=== PATIENT | female | born 1935 | race African-American/Black ===

== ENCOUNTER 2016-12-04 18:31 | Emergency (ER) | payer MEDICARE, MEDICAID ==
[~2016-12-04] VITALS: Ht 154.9 cm; Wt 59.1 kg
[~2016-12-04 18:31] MED LIST: ADALAT CC30 MG; ARICEPT 5MG; DILANTIN 100MG100 MG PO; DUO-KAPS1 CAP PO; MICRO-K 1010 MEQ PO; NEW ENERGY1 CAP PO; OMEGA 31000 MG PO; PLAVIX 75MG TAB75 MG PO; PRINZIDE 12.5 M1 TAB PO; SENNA8.6 MG PO; TEGRETOL 2200 MG/TA1 PO; TENORMIN 5050 MG/TAB PO; VITAMIN C500 MG PO; ZOCOR 20MG20 MG PO
[2016-12-04 18:36] VITALS: TEMP 98.2
[2016-12-04 19:50] LABS: CARBAMAZEPINE (TEGRETOL) 4.7 ug/mL (4.0-12.0)
[2016-12-04 20:17] VITALS: BP 148/84; PULSE 76
== END 2016-12-04 20:18 | disposition home or self-care (01) ==
LOC: COL.ER 18:31
PROVIDERS: Emergency Medicine
DX: J06.9 Acute upper respiratory infection, unspecified (principal); R56.9 Unspecified convulsions

== ENCOUNTER → 2016-12-13 | Outpatient (CLI) | payer MEDICARE, MEDICAID ==
[~2016-12-13] MED LIST changes: +ANTIVERT 12.512.5 MG PO; +ARICEPT 5MG PO; +B-12 500 MCG; +BENADRYL25 M2 PO; +DESYREL 50MG50 MG PO; +DILANTIN KAPSEA30 MG PO; +FOLIC ACID0.4 MG PO; +IMODIUM 2MG CAPS2 MG PO; +MIRALAX PA17 GM/Dose PO; +NORCO 325 MG-51 TAB PO; +PAXIL 30MG30 MG PO; +PEPCID 20MG TAB20 MG PO; +PREPH RC; +TYLENOL 325MG325 MG PO; +ULTRAM 50MG TAB50 MG PO; +VENTOLIN0.09 MG IH
[2016-12-13 13:05] LABS: BASO % 0.4 % (0.0-2.0); EOS % 0.4 % (0-4.0); GRAN # 2.9 (1.4-6.5); GRAN % 52.8 % (42.2-75.2); LYMPH # 1.9 (1.2-3.4); LYMPH % 35.2 % (20.0-51.0); MEAN CELL VOLUME 83 fl (80.0-100.0); MEAN CORPUSCULAR HGB CONC 34 g/dl (33.0-37.0); MEAN PLATELET VOLUME 9.6 fl (7.4-10.4); MONO # 0.6 (0.1-0.6); PLATELET COUNT 214 K/mm3 (130-400); RED BLOOD COUNT 3.92 M/mm3 (4.10-5.30); REDCELL DISTRIBUTION WIDTH-CV 12.1 % (11.5-14.5); WHITE BLOOD COUNT 5.5 K/mm3 (4.8-10.8)
[2016-12-13 13:06] LABS: CREATININE, serum 1.02 mg/dL (0.52-1.25); POTASSIUM 4.5 mmol/L (3.4-5.0)
[2016-12-13 13:15] LABS: HEMATOCRIT 32.5 % (37.0-47.0); HEMOGLOBIN 11.1 g/dl (12.5-16.0); MEAN CORPUSCULAR HEMOGLOBIN 28 pg (27.0-31.0)
== END ==
LOC: ZCOL.LAB 12:13
PROVIDERS: Internal Medicine
DX: I10 Essential (primary) hypertension (principal); Z02.89 Encounter for other administrative examinations

== ENCOUNTER 2016-12-16 23:50 | Emergency (ER) | payer MEDICARE, MEDICAID ==
[~2016-12-16] VITALS: Ht 154.9 cm; Wt 60.0 kg
[~2016-12-16 23:50] MED LIST changes: -ANTIVERT 12.512.5 MG PO; -ARICEPT 5MG PO; -B-12 500 MCG; -BENADRYL25 M2 PO; -DESYREL 50MG50 MG PO; -DILANTIN KAPSEA30 MG PO; -FOLIC ACID0.4 MG PO; -IMODIUM 2MG CAPS2 MG PO; -MIRALAX PA17 GM/Dose PO; -NORCO 325 MG-51 TAB PO; -PAXIL 30MG30 MG PO; -PEPCID 20MG TAB20 MG PO; -PREPH RC; -TYLENOL 325MG325 MG PO; -ULTRAM 50MG TAB50 MG PO; -VENTOLIN0.09 MG IH
[2016-12-16 23:51] VITALS: TEMP 97.4
[2016-12-17 01:03] LABS: PH 7 (5-8); SQUAMOUS EPITHELIAL None Seen /hpf; URINE APPEARANCE Clear; URINE BACTERIA Rare /hpf; URINE BILIRUBIN Negative (NEGATIVE); URINE BLOOD Negative (NEGATIVE); URINE COLOR Straw; URINE GLUCOSE Negative (NEGATIVE); URINE KETONE Negative (NEGATIVE); URINE RBC 0-2 /hpf; URINE UROBILINOGEN Negative (NEGATIVE); URINE WBC 0-2 /hpf
[2016-12-17 01:46] LABS: BASO % 0.3 % (0.0-2.0); EOS % 0.3 % (0-4.0); GRAN # 4.9 (1.4-6.5); GRAN % 72.8 % (42.2-75.2); HEMATOCRIT 35.1 % (37.0-47.0); HEMOGLOBIN 12.1 g/dl (12.5-16.0); LYMPH # 1.2 (1.2-3.4); LYMPH % 17.7 % (20.0-51.0); MEAN CELL VOLUME 82 fl (80.0-100.0); MEAN CORPUSCULAR HEMOGLOBIN 28 pg (27.0-31.0); MEAN CORPUSCULAR HGB CONC 35 g/dl (33.0-37.0); MEAN PLATELET VOLUME 9.2 fl (7.4-10.4); MONO # 0.6 (0.1-0.6); MONO % 8.3 % (1.7-9.3); PLATELET COUNT 216 K/mm3 (130-400); RED BLOOD COUNT 4.27 M/mm3 (4.10-5.30); WHITE BLOOD COUNT 6.7 K/mm3 (4.8-10.8)
[2016-12-17 01:50] LABS: INR 1.1 (0.8-3.0); PROTHROMBIN TIME 12.2 SECONDS (9.7-12.8)
[2016-12-17 01:53] LABS: PARTIAL THROMBOPLASTIN TIME 24.2 SECONDS (26.0-37.0)
[2016-12-17 02:00] LABS: ADJUSTED CALCIUM 8.7 mg/dL (8.4-10.2); ALANINE AMINOTRANSFERASE 32 U/L (9-52); ALBUMIN 4.4 gm/dL (3.5-5.0); ALKALINE PHOSPHATASE 95 U/L (50-136); ANION GAP 13 mmol/L (7-16); BILIRUBIN,TOTAL 0.7 mg/dL (0.0-1.0); BLOOD UREA NITROGEN 20 mg/dL (7-17); C-REACTIVE PROTEIN < 0.5 mg/dL (0.0-0.9); CARBON DIOXIDE 25 mmol/L (22-30); CHLORIDE 101 mmol/L (98-107); CREATININE, serum 1.05 mg/dL (0.52-1.25); GLUCOSE 125 mg/dL (74-106); LIPASE 75 U/L (23-300); POTASSIUM 3.7 mmol/L (3.4-5.0); SODIUM 139 mmol/L (137-145); TOTAL PROTEIN 7.6 gm/dL (6.4-8.2)
[2016-12-17] MEDS ORDERED: B-12 500 MCG (02:04)
[2016-12-17] MEDS ORDERED: FOLIC ACID0.4 MG PO (02:05)
[2016-12-17] MEDS ORDERED: ULTRAM 50MG TAB50 MG PO (02:07)
[2016-12-17] MEDS ORDERED: IMODIUM 2MG CAPS2 MG PO (02:08)
[2016-12-17 02:09] LABS: TROPONIN-I < 0.012 ng/mL (0.000-0.034)
[2016-12-17] MEDS ORDERED: DESYREL 50MG50 MG PO (02:09)
[2016-12-17] MEDS ORDERED: PAXIL 30MG30 MG PO (02:10)
[2016-12-17] MEDS ORDERED: PEPCID 20MG TAB20 MG PO (02:12)
[2016-12-17] MEDS ORDERED: TYLENOL 325MG325 MG PO (02:13)
[2016-12-17] MEDS ORDERED: BENADRYL25 M2 PO (02:14)
[2016-12-17] MEDS ORDERED: PREPH RC (02:14)
[2016-12-17 04:51] VITALS: BP 98/65; PULSE 72
== END 2016-12-17 04:51 | disposition home or self-care (01) ==
LOC: COL.ER 23:50
PROVIDERS: Physician Assistant
DX: R40.4 Transient alteration of awareness (principal); R11.0 Nausea; R51 Headache; R61 Generalized hyperhidrosis; I10 Essential (primary) hypertension; I69.398 Other sequelae of cerebral infarction; G40.909 Epilepsy, unspecified, not intractable, without status epilepticus; R53.1 Weakness
CPT/HCPCS: J2405; J3010; J7040

== ENCOUNTER → 2016-12-27 | Outpatient (CLI) | payer MEDICARE, MEDICAID ==
[~2016-12-27] MED LIST changes: +ANTIVERT 12.512.5 MG PO; +ARICEPT 5MG PO; +B-12 500 MCG; +BENADRYL25 M2 PO; +DESYREL 50MG50 MG PO; +DILANTIN KAPSEA30 MG PO; +FOLIC ACID0.4 MG PO; +IMODIUM 2MG CAPS2 MG PO; +MIRALAX PA17 GM/Dose PO; +NORCO 325 MG-51 TAB PO; +PAXIL 30MG30 MG PO; +PEPCID 20MG TAB20 MG PO; +PREPH RC; +TYLENOL 325MG325 MG PO; +ULTRAM 50MG TAB50 MG PO; +VENTOLIN0.09 MG IH
[2016-12-27 08:00] LABS: CARBAMAZEPINE (TEGRETOL) < 3.0 ug/mL (4.0-12.0)
== END ==
LOC: ZCOL.LAB 07:20
PROVIDERS: Nurse Practitioner
DX: Z02.89 Encounter for other administrative examinations (principal)

== ENCOUNTER → 2016-12-30 | Outpatient (CLI) | payer MEDICARE, MEDICAID | LOC: ZCOL.LAB 18:57 | DX: Z02.89 Encounter for other administrative examinations (principal) ==

== ENCOUNTER → 2016-12-30 | Outpatient (CLI) | payer MEDICARE, MEDICAID | LOC: ZCOL.LAB 19:02 | DX: Z02.89 Encounter for other administrative examinations (principal) ==

== ENCOUNTER → 2017-01-03 | Outpatient (CLI) | payer MEDICARE, MEDICAID | LOC: ZCOL.LAB 20:02 | DX: Z02.89 Encounter for other administrative examinations (principal) ==

== ENCOUNTER 2017-02-15 12:33 | Emergency (ER) | payer MEDICARE, MEDICAID ==
[~2017-02-15] VITALS: Ht 152.4 cm; Wt 60.5 kg
[~2017-02-15 12:33] MED LIST changes: -ANTIVERT 12.512.5 MG PO; -ARICEPT 5MG PO; -DILANTIN KAPSEA30 MG PO; -MIRALAX PA17 GM/Dose PO; -NORCO 325 MG-51 TAB PO; -VENTOLIN0.09 MG IH
[2017-02-15 12:36] VITALS: BP 132/77; TEMP 96.8
[2017-02-15 13:09] LABS: BASO % 0.2 % (0.0-2.0); EOS % 0.9 % (0-4.0); GRAN # 2.9 (1.4-6.5); GRAN % 65.9 % (42.2-75.2); HEMATOCRIT 28.9 % (37.0-47.0); LYMPH % 21.8 % (20.0-51.0); MEAN CELL VOLUME 84 fl (80.0-100.0); MEAN CORPUSCULAR HEMOGLOBIN 29 pg (27.0-31.0); MEAN CORPUSCULAR HGB CONC 35 g/dl (33.0-37.0); MONO # 0.5 (0.1-0.6); PLATELET COUNT 183 K/mm3 (130-400); RED BLOOD COUNT 3.46 M/mm3 (4.10-5.30); REDCELL DISTRIBUTION WIDTH-CV 12.1 % (11.5-14.5); WHITE BLOOD COUNT 4.5 K/mm3 (4.8-10.8)
[2017-02-15 13:19] LABS: ADJUSTED CALCIUM 8.7 mg/dL (8.4-10.2); ALBUMIN 3.7 gm/dL (3.5-5.0); BILIRUBIN,TOTAL 0.7 mg/dL (0.0-1.0); CALCIUM 8.5 mg/dL (8.4-10.2); CREATININE, serum 1.03 mg/dL (0.52-1.25); POTASSIUM 4.1 mmol/L (3.4-5.0); TOTAL PROTEIN 6.4 gm/dL (6.4-8.2)
[2017-02-15] MEDS ORDERED: ARICEPT 5MG PO (14:01)
[2017-02-15] MEDS ORDERED: ANTIVERT 12.512.5 MG PO (14:05)
[2017-02-15] MEDS ORDERED: MIRALAX PA17 GM/Dose PO (14:06)
[2017-02-15] MEDS ORDERED: VENTOLIN0.09 MG IH (14:06)
[2017-02-15] MEDS ORDERED: DILANTIN KAPSEA30 MG PO (16:13)
[2017-02-15] MEDS ORDERED: NORCO 325 MG-51 TAB PO (16:28)
[2017-02-15 16:44] VITALS: PULSE 70
== END 2017-02-15 16:46 | disposition home or self-care (01) ==
LOC: COL.ER 12:33
PROVIDERS: Emergency Medicine
DX: S00.03XA Contusion of scalp, initial encounter (principal); S09.90XA Unspecified injury of head, initial encounter; W05.0XXA Fall from non-moving wheelchair, initial encounter; Y92.129 Unspecified place in nursing home as the place of occurrence of the external cause; Z86.73 Personal history of transient ischemic attack (TIA), and cerebral infarction without residual deficits; G40.909 Epilepsy, unspecified, not intractable, without status epilepticus; I10 Essential (primary) hypertension; Z99.3 Dependence on wheelchair; Z79.02 Long term (current) use of antithrombotics/antiplatelets

== ENCOUNTER → 2017-02-24 | Outpatient (CLI) | payer MEDICARE, MEDICAID ==
[~2017-02-24] MED LIST changes: +ANTIVERT 12.512.5 MG PO; +ARICEPT 5MG PO; +DILANTIN KAPSEA30 MG PO; +MIRALAX PA17 GM/Dose PO; +NORCO 325 MG-51 TAB PO; +VENTOLIN0.09 MG IH
[2017-02-24 16:49] LABS: ALANINE AMINOTRANSFERASE 28 U/L (9-52); ALKALINE PHOSPHATASE 73 U/L (50-136); ANION GAP 10 mmol/L (7-16); BILIRUBIN,DIRECT 0.3 mg/dL (0.0-0.4); BILIRUBIN,TOTAL 0.3 mg/dL (0.0-1.0); BLOOD UREA NITROGEN 23 mg/dL (7-17); CALCIUM 8.4 mg/dL (8.4-10.2); CARBON DIOXIDE 26 mmol/L (22-30); CHLORIDE 104 mmol/L (98-107); CREATININE, serum 1.03 mg/dL (0.52-1.25); GLUCOSE 113 mg/dL (74-106); POTASSIUM 3.9 mmol/L (3.4-5.0); SODIUM 140 mmol/L (137-145)
[2017-02-24 17:22] LABS: C-REACTIVE PROTEIN < 0.5 mg/dL (0.0-0.9)
== END ==
LOC: ZCOL.LAB 15:17
PROVIDERS: Internal Medicine
DX: T78.3XXA Angioneurotic edema, initial encounter (principal)

== ENCOUNTER → 2017-02-28 | Outpatient (CLI) | payer MEDICARE, MEDICAID | LOC: ZCOL.LAB 17:28 | DX: R79.89 Other specified abnormal findings of blood chemistry (principal) ==

== ENCOUNTER → 2017-04-04 | Outpatient (CLI) | payer MEDICARE, MEDICAID | LOC: ZCOL.LAB 11:01 | DX: R26.2 Difficulty in walking, not elsewhere classified (principal) ==

== ENCOUNTER → 2017-04-08 | Outpatient (CLI) | payer MEDICARE, MEDICAID ==
[2017-04-08 11:03] LABS: PH 5 (5-8); URINE APPEARANCE Clear; URINE BACTERIA Moderate /hpf; URINE BILIRUBIN Negative (NEGATIVE); URINE BLOOD Negative (NEGATIVE); URINE COLOR Yellow; URINE GLUCOSE Negative (NEGATIVE); URINE KETONE Negative (NEGATIVE); URINE RBC 0-2 /hpf; URINE UROBILINOGEN Negative (NEGATIVE)
== END ==
LOC: ZCOL.LAB 10:51
PROVIDERS: Internal Medicine
DX: N39.0 Urinary tract infection, site not specified (principal)

== ENCOUNTER → 2017-05-09 | Outpatient (CLI) | payer MEDICARE, MEDICAID ==
[2017-05-09 12:23] LABS: CHOLESTEROL 184 mg/dL (120-200); CHOLESTEROL RISK RATIO 1.7; HDL CHOLESTEROL 103 mg/dL; LDL CHOLESTEROL 68 mg/dL; TRIGLYCERIDE 66 mg/dL
[2017-05-09 13:55] LABS: PHENYTOIN (DILANTIN) < 3.0 ug/mL (10.0-20.0)
== END ==
LOC: EDSTATUS 09:19 → ZCOL.LAB 11:35
PROVIDERS: Internal Medicine
DX: Z01.89 Encounter for other specified special examinations (principal); E78.5 Hyperlipidemia, unspecified

== ENCOUNTER → 2017-10-08 | Outpatient (CLI) | payer MEDICARE, MEDICAID ==
[2017-10-08 15:22] LABS: ALBUMIN 4.6 gm/dL (3.5-5.0); BILIRUBIN,TOTAL 0.3 mg/dL (0.0-1.0); CALCIUM 8.8 mg/dL (8.4-10.2); CREATININE, serum 0.99 mg/dL (0.52-1.25); POTASSIUM 3.6 mmol/L (3.4-5.0); TOTAL PROTEIN 7.6 gm/dL (6.4-8.2)
== END ==
LOC: ZCOL.LAB 15:04
PROVIDERS: Internal Medicine
DX: G40.89 Other seizures (principal); E87.6 Hypokalemia

== ENCOUNTER → 2017-12-30 | Outpatient (CLI) | payer MEDICARE, MEDICAID | LOC: ZCOL.LAB 11:49 | DX: D51.9 Vitamin B12 deficiency anemia, unspecified (principal); R26.2 Difficulty in walking, not elsewhere classified ==

== ENCOUNTER → 2018-02-02 | Outpatient (CLI) | payer MEDICARE, MEDICAID | LOC: ZCOL.LAB 11:21 | DX: D51.0 Vitamin B12 deficiency anemia due to intrinsic factor deficiency (principal) ==

== ENCOUNTER → 2018-07-04 | Outpatient (CLI) | payer MEDICARE, MEDICAID ==
[2018-07-04 12:50] LABS: BASO % 0.3 % (0.0-2.0); EOS # 0.1 (0.0-0.7); EOS % 1.5 % (0-4.0); GRAN # 2.6 (1.4-6.5); GRAN % 44.2 % (42.2-75.2); HEMOGLOBIN 10.2 g/dl (12.5-16.0); LYMPH # 2.5 (1.2-3.4); LYMPH % 42.2 % (20.0-51.0); MEAN CELL VOLUME 83 fl (80.0-100.0); MEAN CORPUSCULAR HEMOGLOBIN 28 pg (27.0-31.0); MEAN CORPUSCULAR HGB CONC 34 g/dl (33.0-37.0); MEAN PLATELET VOLUME 9.7 fl (7.4-10.4); MONO # 0.7 (0.1-0.6); MONO % 11.6 % (1.7-9.3); PLATELET COUNT 184 K/mm3 (130-400); RED BLOOD COUNT 3.64 M/mm3 (4.10-5.30); REDCELL DISTRIBUTION WIDTH-CV 12.1 % (11.5-14.5)
[2018-07-04 12:51] LABS: HEMATOCRIT 30.2 % (37.0-47.0)
[2018-07-04 13:24] LABS: ALBUMIN 3.4 gm/dL (3.5-5.0); BILIRUBIN,TOTAL 0.3 mg/dL (0.0-1.0); CALCIUM 8.5 mg/dL (8.4-10.2); CHOLESTEROL RISK RATIO 1.7; CREATININE, serum 1.15 mg/dL (0.52-1.25); POTASSIUM 4.9 mmol/L (3.4-5.0); TOTAL PROTEIN 6.2 gm/dL (6.4-8.2)
[2018-07-04 13:52] LABS: CARBAMAZEPINE (TEGRETOL) 4.9 ug/mL (4.0-12.0); PHENYTOIN (DILANTIN) 6.6 ug/mL (10.0-20.0)
== END ==
LOC: ZCOL.LAB 11:30
PROVIDERS: Internal Medicine
DX: I10 Essential (primary) hypertension (principal); E78.5 Hyperlipidemia, unspecified

== ENCOUNTER → 2019-04-08 | Outpatient (CLI) | payer MEDICARE, MEDICAID ==
[2019-04-08 17:59] LABS: BASO % 0.4 % (0.0-2.0); EOS # 0.1 (0.0-0.7); EOS % 1.3 % (0-4.0); GRAN # 3.1 (1.4-6.5); GRAN % 56.6 % (42.2-75.2); LYMPH # 1.6 (1.2-3.4); LYMPH % 29.4 % (20.0-51.0); MEAN CELL VOLUME 84 fl (80.0-100.0); MEAN CORPUSCULAR HGB CONC 33 g/dl (33.0-37.0); MEAN PLATELET VOLUME 9.6 fl (7.4-10.4); MONO # 0.7 (0.1-0.6); MONO % 11.9 % (1.7-9.3); PLATELET COUNT 171 K/mm3 (130-400); REDCELL DISTRIBUTION WIDTH-CV 12.1 % (11.5-14.5)
[2019-04-08 18:08] LABS: HEMATOCRIT 29.4 % (37.0-47.0); HEMOGLOBIN 9.8 g/dl (12.5-16.0); MEAN CORPUSCULAR HEMOGLOBIN 28 pg (27.0-31.0)
[2019-04-08 18:45] LABS: CALCIUM 8.6 mg/dL (8.4-10.2); CARBAMAZEPINE (TEGRETOL) 6.2 ug/mL (4.0-12.0); CREATININE, serum 0.95 (0.52-1.25); PHENYTOIN (DILANTIN) 5.8 ug/mL (10.0-20.0); POTASSIUM 4.2 mmol/L (3.4-5.0)
== END ==
LOC: ZCOL.LAB 16:05
PROVIDERS: Nurse Practitioner
DX: I95.9 Hypotension, unspecified (principal); D64.9 Anemia, unspecified; R26.2 Difficulty in walking, not elsewhere classified

== ENCOUNTER → 2019-09-10 | Outpatient (CLI) | payer MEDICARE, MEDICAID ==
[2019-09-10 13:17] LABS: CHOLESTEROL RISK RATIO 1.7
== END ==
LOC: ZCOL.LAB 12:44
PROVIDERS: Internal Medicine
DX: E78.5 Hyperlipidemia, unspecified (principal)

== ENCOUNTER → 2019-12-27 | Outpatient (CLI) | payer MEDICARE, MEDICAID ==
[2019-12-27 10:35] LABS: IRON,SERUM 57 ug/dL (35-150)
[2019-12-27 10:36] LABS: BILIRUBIN,TOTAL 0.3 mg/dL (0.0-1.0); CALCIUM 8.8 mg/dL (8.4-10.2); CREATININE, serum 1.05 (0.52-1.25); POTASSIUM 3.9 mmol/L (3.4-5.0); TOTAL PROTEIN 6.9 gm/dL (6.4-8.2)
[2019-12-27 10:42] LABS: BASO % 0.4 % (0.0-2.0); EOS # 0.1 (0.0-0.7); EOS % 1.3 % (0-4.0); GRAN # 2.6 (1.4-6.5); GRAN % 47.9 % (42.2-75.2); HEMOGLOBIN 10.7 g/dl (12.5-16.0); LYMPH # 2.1 (1.2-3.4); LYMPH % 38.9 % (20.0-51.0); MEAN CELL VOLUME 84 fl (80.0-100.0); MEAN CORPUSCULAR HEMOGLOBIN 29 pg (27.0-31.0); MEAN CORPUSCULAR HGB CONC 34 g/dl (33.0-37.0); MEAN PLATELET VOLUME 9.6 fl (7.4-10.4); MONO # 0.6 (0.1-0.6); MONO % 11.3 % (1.7-9.3); PLATELET COUNT 189 K/mm3 (130-400); RED BLOOD COUNT 3.75 M/mm3 (4.10-5.30); REDCELL DISTRIBUTION WIDTH-CV 12.1 % (11.5-14.5); RETIC # 0.03 M/mm3 (0.02-0.16); RETIC % 0.8 % (0.5-3.52)
[2019-12-27 10:44] LABS: TOTAL IRON BINDING CAPACITY 259 ug/dL (265-497)
[2019-12-27 10:52] LABS: HEMATOCRIT 31.4 % (37.0-47.0)
[2019-12-27 11:05] LABS: THYROID STIMULATING HORMONE 2.78 uIU/mL (0.465-4.680)
== END ==
LOC: ZCOL.LAB 09:02
PROVIDERS: Internal Medicine
DX: G47.01 Insomnia due to medical condition (principal); D64.9 Anemia, unspecified; F41.9 Anxiety disorder, unspecified

== ENCOUNTER → 2020-03-06 | Outpatient (CLI) | payer MEDICARE, MEDICAID | LOC: ZCOL.LAB 09:18 | DX: G40.89 Other seizures (principal) ==

== ENCOUNTER → 2020-03-28 | Outpatient (CLI) | payer MEDICARE, MEDICAID | LOC: ZCOL.LAB 16:48 | DX: Z01.89 Encounter for other specified special examinations (principal) ==

== ENCOUNTER → 2020-06-21 | Outpatient (CLI) | payer MEDICARE, MEDICAID ==
[2020-06-21 10:26] LABS: BASO % 0.4 % (0.0-2.0); EOS # 0.1 (0.0-0.7); GRAN # 2.6 (1.4-6.5); HEMOGLOBIN 10.2 g/dl (12.5-16.0); LYMPH # 1.8 (1.2-3.4); LYMPH % 36.6 % (20.0-51.0); MEAN CELL VOLUME 83 fl (80.0-100.0); MEAN CORPUSCULAR HEMOGLOBIN 28 pg (27.0-31.0); MEAN CORPUSCULAR HGB CONC 33 g/dl (33.0-37.0); MEAN PLATELET VOLUME 9.7 fl (7.4-10.4); MONO # 0.5 (0.1-0.6); MONO % 9.8 % (1.7-9.3); PLATELET COUNT 179 K/mm3 (130-400); RED BLOOD COUNT 3.68 M/mm3 (4.10-5.30); REDCELL DISTRIBUTION WIDTH-CV 11.9 % (11.5-14.5)
[2020-06-21 10:27] LABS: HEMATOCRIT 30.7 % (37.0-47.0)
[2020-06-21 10:33] LABS: ALBUMIN 3.8 gm/dL (3.5-5.0); BILIRUBIN,TOTAL 0.4 mg/dL (0.0-1.0); CALCIUM 8.2 mg/dL (8.4-10.2); CREATININE, serum 1.04 (0.52-1.25); MAGNESIUM 1.7 mg/dL (1.6-2.3); POTASSIUM 4.1 mmol/L (3.4-5.0); TOTAL PROTEIN 6.4 gm/dL (6.4-8.2)
== END ==
LOC: ZCOL.LAB 09:49
PROVIDERS: Internal Medicine
DX: E61.2 Magnesium deficiency (principal); D51.9 Vitamin B12 deficiency anemia, unspecified; R68.89 Other general symptoms and signs

== ENCOUNTER → 2020-07-10 | Outpatient (CLI) | payer MEDICARE, MEDICAID ==
[2020-07-10 08:26] LABS: IRON,SERUM 119 ug/dL (35-150)
[2020-07-10 08:35] LABS: TOTAL IRON BINDING CAPACITY 255 ug/dL (265-497)
== END ==
LOC: ZCOL.LAB 07:56
PROVIDERS: Internal Medicine
DX: D50.9 Iron deficiency anemia, unspecified (principal)

== ENCOUNTER → 2020-08-17 | Outpatient (CLI) | payer MEDICARE, MEDICAID | LOC: ZCOL.LAB 16:36 | DX: G40.89 Other seizures (principal) ==

== ENCOUNTER → 2020-09-14 | Outpatient (CLI) | payer MEDICARE, MEDICAID ==
[2020-09-14 09:35] LABS: CHOLESTEROL RISK RATIO 1.8
== END ==
LOC: ZCOL.LAB 08:39
PROVIDERS: Internal Medicine
DX: E78.5 Hyperlipidemia, unspecified (principal)

== ENCOUNTER → 2020-12-14 | Outpatient (CLI) | payer MEDICARE, MEDICAID ==
[2020-12-14 11:30] LABS: BASO % 0.2 % (0.0-2.0); EOS # 0.1 (0.0-0.7); GRAN # 2.6 (1.4-6.5); GRAN % 52.8 % (42.2-75.2); HEMATOCRIT 30.9 % (37.0-47.0); HEMOGLOBIN 10.3 g/dl (12.5-16.0); LYMPH # 1.7 (1.2-3.4); LYMPH % 34.7 % (20.0-51.0); MEAN CELL VOLUME 83 fl (80.0-100.0); MEAN CORPUSCULAR HEMOGLOBIN 28 pg (27.0-31.0); MEAN CORPUSCULAR HGB CONC 33 g/dl (33.0-37.0); MEAN PLATELET VOLUME 9.6 fl (7.4-10.4); MONO # 0.6 (0.1-0.6); MONO % 11.1 % (1.7-9.3); PLATELET COUNT 175 K/mm3 (130-400); RED BLOOD COUNT 3.72 M/mm3 (4.10-5.30); REDCELL DISTRIBUTION WIDTH-CV 12.1 % (11.5-14.5)
[2020-12-14 11:32] LABS: ALBUMIN 3.6 gm/dL (3.5-5.0); BILIRUBIN,TOTAL 0.1 mg/dL (0.0-1.0); CALCIUM 8.5 mg/dL (8.4-10.2); CREATININE, serum 1.12 (0.52-1.25); POTASSIUM 4.1 mmol/L (3.4-5.0); TOTAL PROTEIN 6.3 gm/dL (6.4-8.2)
[2020-12-14 11:50] LABS: PHENYTOIN (DILANTIN) 3.8 ug/mL (10.0-20.0)
== END ==
LOC: ZCOL.LAB 08:39
PROVIDERS: Internal Medicine
DX: Z51.81 Encounter for therapeutic drug level monitoring (principal); D64.9 Anemia, unspecified; R74.01 Elevation of levels of liver transaminase levels; E53.9 Vitamin B deficiency, unspecified

== ENCOUNTER → 2021-03-07 | Outpatient (CLI) | payer MEDICARE, MEDICAID | LOC: ZCOL.LAB 09:23 | DX: R73.09 Other abnormal glucose (principal); R94.6 Abnormal results of thyroid function studies; D51.9 Vitamin B12 deficiency anemia, unspecified ==

== ENCOUNTER 2022-02-20 10:22 | Emergency (ER) | payer MEDICARE, MEDICAID ==
[~2022-02-20] VITALS: Ht 154.9 cm; Wt 59.1 kg
[2022-02-20 10:24] VITALS: TEMP 97.8
[2022-02-20 10:46] LABS: BASO % 0.5 % (0.0-2.0); EOS # 0.1 K/mm3 (0.0-0.7); EOS % 1.4 % (0.0-4.0); GRAN % 53.3 % (42.2-75.2); HEMOGLOBIN 10.7 g/dl (12.5-16.0); LYMPH # 1.9 K/mm3 (1.2-3.4); LYMPH % 33.5 % (20.0-51.0); MEAN CELL VOLUME 83 fl (80.0-100.0); MEAN CORPUSCULAR HEMOGLOBIN 27 pg (27-31); MEAN CORPUSCULAR HGB CONC 33 g/dl (33.0-37.0); MEAN PLATELET VOLUME 9.5 fl (7.4-10.4); MONO # 0.6 K/mm3 (0.1-0.6); MONO % 10.9 % (1.7-9.3); PLATELET COUNT 187 K/mm3 (130-400); REDCELL DISTRIBUTION WIDTH-CV 12.4 % (11.5-14.5)
[2022-02-20 10:48] LABS: HEMATOCRIT 32.2 % (37.0-47.0)
[2022-02-20 10:53] LABS: INR 1.1 (0.8-3.0); PROTHROMBIN TIME 12.1 SECONDS (9.7-12.8)
[2022-02-20 11:04] LABS: ALBUMIN 3.4 gm/dL (3.4-4.8); BILIRUBIN,TOTAL 0.5 mg/dL (0.2-1.2); C-REACTIVE PROTEIN 0.27 mg/dL (0.00-0.50); CALCIUM 8.5 mg/dL (8.4-10.2); CREATININE, serum 1.14 mg/dL (0.57-1.11); POTASSIUM 3.8 mmol/L (3.5-4.5); TOTAL PROTEIN 6.8 gm/dL (6.2-8.1)
[2022-02-20] MEDS ORDERED: BUSPAR5 MG PO (11:52)
[2022-02-20] MEDS ORDERED: TEGRETOL 2200 MG/TA1 PO (11:52)
[2022-02-20] MEDS ORDERED: CELEBREX 1100 MG/CAP PO (11:53)
[2022-02-20] MEDS ORDERED: CLARITIN 1010 MG/TAB PO (11:53)
[2022-02-20] MEDS ORDERED: VITAMIN B11000 MCG/M IM (11:54)
[2022-02-20] MEDS ORDERED: DICLOFENAC SOD2.5 ML TOP (11:54)
[2022-02-20] MEDS ORDERED: DILANTIN 100MG100 MG PO (11:55)
[2022-02-20] MEDS ORDERED: ARICEPT10 MG PO (11:56)
[2022-02-20] MEDS ORDERED: ZESTORETIC 12.51 TA1 PO (11:57)
[2022-02-20] MEDS ORDERED: IMODIUM 2MG CAPS2 MG PO (11:57)
[2022-02-20] MEDS ORDERED: MAGNESIUM200 MG (11:58)
[2022-02-20] MEDS ORDERED: MIRTAZAPINE7.5 MG PO (11:58)
[2022-02-20] MEDS ORDERED: NORCO 325 MG-51 TAB PO (11:59)
[2022-02-20] MEDS ORDERED: PROCARDIA XL 3030 MG PO (11:59)
[2022-02-20] MEDS ORDERED: PAXIL 30MG30 MG PO (12:00)
[2022-02-20] MEDS ORDERED: PLAVIX 75MG TAB75 MG PO (12:01)
[2022-02-20] MEDS ORDERED: KLOR-CON SPRIN10 MEQ PO (12:01)
[2022-02-20] MEDS ORDERED: ZOCOR 20MG20 MG PO (12:02)
[2022-02-20] MEDS ORDERED: TOPROL XL 50MG50 MG PO (12:02)
[2022-02-20] MEDS ORDERED: SENNA-LAX8.6 MG PO (12:02)
[2022-02-20] MEDS ORDERED: NATURAL E400 IU PO (12:03)
[2022-02-20 12:34] VITALS: BP 166/78; PULSE 82
== END 2022-02-20 13:09 | disposition home or self-care (01) ==
LOC: COL.ER 10:22
PROVIDERS: Family Medicine
DX: G45.9 Transient cerebral ischemic attack, unspecified (principal)

== ENCOUNTER 2022-02-23 11:47 | Emergency (ER) | payer MEDICARE, MEDICAID ==
[~2022-02-23] VITALS: Ht 154.9 cm; Wt 59.1 kg
[~2022-02-23 11:47] MED LIST changes: +ARICEPT10 MG PO; +BUSPAR5 MG PO; +CELEBREX 1100 MG/CAP PO; +CLARITIN 1010 MG/TAB PO; +DICLOFENAC SOD2.5 ML TOP; +KLOR-CON SPRIN10 MEQ PO; +MAGNESIUM200 MG; +MIRTAZAPINE7.5 MG PO; +NATURAL E400 IU PO; +PROCARDIA XL 3030 MG PO; +SENNA-LAX8.6 MG PO; +TOPROL XL 50MG50 MG PO; +VITAMIN B11000 MCG/M IM; +ZESTORETIC 12.51 TA1 PO
[2022-02-23 11:52] VITALS: TEMP 98.6
[2022-02-23 13:35] VITALS: BP 151/74; PULSE 68
== END 2022-02-23 13:35 | disposition home or self-care (01) ==
LOC: COL.ER 11:47
DX: S83.91XA Sprain of unspecified site of right knee, initial encounter (principal); X58.XXXA Exposure to other specified factors, initial encounter

== ENCOUNTER 2022-03-22 02:36 | Observation (INO) | payer MEDICARE, MEDICAID ==
[2022-03-22] VITALS (11 sets, daily range): BP systolic 126–151; BP diastolic 60–87; PULSE 64–83; TEMP 97.9–98.4
[~2022-03-22] VITALS: Ht 170.2 cm; Wt 59.0 kg
[2022-03-22 03:49] LABS: BASO % 0.4 % (0.0-2.0); EOS # 0.1 K/mm3 (0.0-0.7); EOS % 2.2 % (0.0-4.0); GRAN # 2.4 K/mm3 (1.4-6.5); GRAN % 48.3 % (42.2-75.2); HEMOGLOBIN 10.3 g/dl (12.5-16.0); LYMPH # 1.9 K/mm3 (1.2-3.4); LYMPH % 36.8 % (20.0-51.0); MEAN CELL VOLUME 82 fl (80.0-100.0); MEAN CORPUSCULAR HEMOGLOBIN 27 pg (27-31); MEAN CORPUSCULAR HGB CONC 33 g/dl (33.0-37.0); MEAN PLATELET VOLUME 9.4 fl (7.4-10.4); MONO # 0.6 K/mm3 (0.1-0.6); MONO % 12.1 % (1.7-9.3); PLATELET COUNT 208 K/mm3 (130-400); RED BLOOD COUNT 3.79 M/mm3 (4.10-5.30); REDCELL DISTRIBUTION WIDTH-CV 11.8 % (11.5-14.5)
[2022-03-22 03:56] LABS: HEMATOCRIT 31.1 % (37.0-47.0)
[2022-03-22 04:09] LABS: INR 1.1 (0.8-3.0); PROTHROMBIN TIME 12.1 SECONDS (9.7-12.8)
[2022-03-22 04:12] LABS: PARTIAL THROMBOPLASTIN TIME 26.1 SECONDS (26.0-37.0)
[2022-03-22 04:19] LABS: TROPONIN-I < 0.010 ng/mL (0.00-0.033)
[2022-03-22 04:20] LABS: ALANINE AMINOTRANSFERASE 11 U/L (0-55); ALBUMIN 3.4 gm/dL (3.4-4.8); ALKALINE PHOSPHATASE 103 U/L (40-150); ANION GAP 13 mmol/L (7-16); AST,SGOT 13 U/L (5-34); BILIRUBIN,TOTAL 0.2 mg/dL (0.2-1.2); BLOOD UREA NITROGEN 25 mg/dL (10-20); CALCIUM 8.7 mg/dL (8.4-10.2); CARBON DIOXIDE 21 mmol/L (23-31); CHLORIDE 108 mmol/L (98-107); GLUCOSE 106 mg/dL (70-99); SODIUM 142 mmol/L (136-145); TOTAL PROTEIN 6.8 gm/dL (6.2-8.1)
[2022-03-22 04:30] LABS: CREATININE, serum 1.25 mg/dL (0.57-1.11)
[2022-03-22 05:29] LABS: COLLECTION METHOD CATHETER
[2022-03-22 05:39] LABS: PH 5 (5-8); SQUAMOUS EPITHELIAL 0-2 /hpf (0-10); URINE APPEARANCE Clear (CLEAR/HAZY); URINE BACTERIA None Seen /hpf (NONE SEEN); URINE BLOOD Negative (NEGATIVE); URINE COLOR Straw (YELLOW); URINE GLUCOSE Negative (NEGATIVE); URINE KETONE Negative (NEGATIVE); URINE NITRATE Negative (NEGATIVE); URINE PROTEIN(semi-quant) Negative (NEGATIVE); URINE RBC 0-2 /hpf (0-2); URINE UROBILINOGEN Negative (NEGATIVE); URINE WBC 0-2 /hpf (0-2)
[2022-03-22 08:07] LABS: CHOLESTEROL RISK RATIO 2.6
--- NOTE | 2022-03-22 08:30 | NUR ---
PATIENT ARRIVED TO UNIT AT THIS TIME FROM ED IN STABLE CONDITION. ASSESSMENTS COMPLETED. WAITING ON MED LIST FROM [facility]. NO SKIN ISSUES IDENTIFIED. PATIENT USES WHEEL CHAIR TO GET AROUND AT HOME. STATES SOMEONE HELPS HER THERE WHEN NEEDED. CONTINENT OF B/B. NO SWALLOWING DIFFICULTIES. HAS HAD MULTIPLE STROKES IN THE PAST WITH MILD LEFT SIDED DEFICITES. SWELLING NOTED TO TOP LIP, UNKNOWN CAUSE. WAS TREATED FOR THIS IN THE ED WITH NO CHANGE TO SWELLING. NO COMPLAINTS AT THIS TIME. VITALS WNL
--- NOTE | 2022-03-22 14:32 | NUR ---
Concession Worker contacted Natalie at [facility] who advised patient is a resident of [facility]. Natalie faxed ARVIND copy of DPOA- which designates patient's daughter, America (ph#[phone]). ARVIND faxed Natalie clinical updates. ARVIND met with patient to discuss discharge planning. Patient confirms she lives in [place] and advised she sees Dr. Melton for primary care. Patient cannot remember her pharmacy, however states her medications are delivered to her. Patient states he uses a wheelchair normally for ambulation. Patient would like ARVIND to contact her daughter, America as she advised she has not been able to reach her and is unsure America knows she is here. Patient states she plans to return to [place] at time of discharge. ARVIND attempted to contact patient's daughter, America and left a message. Discharge Plan: [facility]
--- NOTE | 2022-03-22 22:29 | NUR ---
Patient assessed around 2124. Alert and oriented x 4. Denies having pain and discomfort. Peripheral INT x 2 to right AC. Complained of headache, and given PRN [place] for pain as requested. Also complained of insomnia and requested something to help her sleep. Called [facility]ER[facility] Mendez and new order for Melatonin recieved and given per orders. Patient voices no further questions, needs, or concerns at this time. In bed with call light within reach.
[2022-03-23] VITALS (7 sets, daily range): BP systolic 133–175; BP diastolic 56–75; PULSE 68–91; TEMP 97.8–98.3
--- NOTE | 2022-03-23 05:09 | NUR ---
Denies pain and discomfort this shift. Reports [place] and Melatonin was effective with helping patient get some rest during the night. Continues on IV solumedrol per orders. Voices no questions, needs, or concerns at this time. In bed with call light within reach.
[2022-03-23 06:18] LABS: BASO % 0.2 % (0.0-2.0); EOS % 0.2 % (0.0-4.0); GRAN # 4.5 K/mm3 (1.4-6.5); GRAN % 76.8 % (42.2-75.2); MEAN CELL VOLUME 81 fl (80.0-100.0); MEAN CORPUSCULAR HGB CONC 34 g/dl (33.0-37.0); MEAN PLATELET VOLUME 9.4 fl (7.4-10.4); MONO # 0.3 K/mm3 (0.1-0.6); MONO % 5.5 % (1.7-9.3); PLATELET COUNT 198 K/mm3 (130-400); RED BLOOD COUNT 3.37 M/mm3 (4.10-5.30); REDCELL DISTRIBUTION WIDTH-CV 11.6 % (11.5-14.5)
[2022-03-23 06:22] LABS: HEMATOCRIT 27.4 % (37.0-47.0); HEMOGLOBIN 9.3 g/dl (12.5-16.0); MEAN CORPUSCULAR HEMOGLOBIN 28 pg (27-31)
[2022-03-23 06:38] LABS: ALBUMIN 3.1 gm/dL (3.4-4.8); CALCIUM 8.6 mg/dL (8.4-10.2); CREATININE, serum 1.22 mg/dL (0.57-1.11); MAGNESIUM 2.1 mg/dL (1.6-2.6); PHOSPHOROUS 4.4 mg/dL (2.3-4.7); POTASSIUM 4.2 mmol/L (3.5-4.5)
--- NOTE | 2022-03-23 10:25 | NUR ---
Initial visit; Patient thanked [employer] for visiting her and offering prayer. Katiana stated how much she liked the prayer and was appreciative of [employer] keeping her in her prayers. [employer] told Katiana she would look in on her again while she is hospitalized.
--- NOTE | 2022-03-23 13:42 | NUR ---
PT SLEEPING DURING BEDSIDE REPORT
[2022-03-23 16:51] LABS: CARBAMAZEPINE (TEGRETOL) 7.4 ug/mL (4.0-12.0); PHENYTOIN (DILANTIN) 4.8 ug/mL (10.0-20.0)
[2022-03-23 16:59] LABS: C-REACTIVE PROTEIN 0.71 mg/dL (0.00-0.50)
--- NOTE | 2022-03-23 22:35 | NUR ---
Patient assessed around 2009. Alert and oriented x 4, and able to make needs known. Reported level 5 pain to right leg. Given PRN [place] as requested, as well as Melatonin for insomnia. Patient voices no further questions, needs, or concerns at this time. In bed with call light within reach.
[2022-03-24 03:22] VITALS: BP 102/67; PULSE 68; TEMP 97.8
--- NOTE | 2022-03-24 05:20 | NUR ---
Continues on IV steroids per orders. Voices no questions, needs, or concerns at this time. In bed with call light within reach. No swelling noted to lips this shift.
[2022-03-24 06:33] LABS: BASO % 0.1 % (0.0-2.0); EOS % 0.4 % (0.0-4.0); GRAN % 81.3 % (42.2-75.2); HEMOGLOBIN 10.7 g/dl (12.5-16.0); LYMPH # 1.2 K/mm3 (1.2-3.4); LYMPH % 13.7 % (20.0-51.0); MEAN CELL VOLUME 82 fl (80.0-100.0); MEAN CORPUSCULAR HEMOGLOBIN 28 pg (27-31); MEAN CORPUSCULAR HGB CONC 34 g/dl (33.0-37.0); MEAN PLATELET VOLUME 9.6 fl (7.4-10.4); MONO # 0.3 K/mm3 (0.1-0.6); PLATELET COUNT 226 K/mm3 (130-400); RED BLOOD COUNT 3.88 M/mm3 (4.10-5.30); REDCELL DISTRIBUTION WIDTH-CV 11.7 % (11.5-14.5)
[2022-03-24 06:47] LABS: HEMATOCRIT 31.7 % (37.0-47.0)
[2022-03-24 06:54] LABS: ALBUMIN 3.5 gm/dL (3.4-4.8); CREATININE, serum 1.38 mg/dL (0.57-1.11); MAGNESIUM 2.2 mg/dL (1.6-2.6); PHOSPHOROUS 3.5 mg/dL (2.3-4.7); POTASSIUM 4.3 mmol/L (3.5-4.5)
[2022-03-24 07:00] VITALS: BP 172/67; PULSE 69; TEMP 97.6
--- NOTE | 2022-03-24 07:32 | NUR ---
PT SLEEPING DURING BEDSIDE REPORT
[2022-03-24] MEDS ORDERED: APRESOLINE 10MG10 MG PO (08:56)
[2022-03-24] MEDS ORDERED: MELATIN 3 MG-11 TAB PO (08:58)
[2022-03-24] MEDS ORDERED: PREDNISONE10 MG PO (08:58)
--- NOTE | 2022-03-24 10:05 | NUR ---
SW called [facility] to setup transportation, after DPOA daughter could not transport. [facility] reports they are currently working on it and recieved a phone call from daughter. No other needs at this time.
--- NOTE | 2022-03-24 11:08 | NUR ---
PATIENT GIVEN DUE MEDICATION, NO REACTION NOTED,IV REMOVED, TELE REMOVED,PT DISCHARGED FROM THE UNIT TO [facility], ESCORTED OUT OF THE UNIT BY UNIT STAFF ACCOMPANIED HOME BY PAIGE ROCHA STAFF.
--- NOTE | 2022-03-24 11:24 | NUR ---
PT REPORT CALLED IN AND GIVEN TO THE [facility] STAFF.
== END 2022-03-24 10:30 ==
LOC: COL.ER 02:36 → MEDICAL 06:35
PROVIDERS: Emergency Medicine; Psychiatry & Neurology Neurology; ADMIT Internal Medicine
DX: R47.1 Dysarthria and anarthria (principal); T78.3XXA Angioneurotic edema, initial encounter; I10 Essential (primary) hypertension; F03.90 Unspecified dementia, unspecified severity, without behavioral disturbance, psychotic disturbance, mood disturbance, and anxiety; G40.909 Epilepsy, unspecified, not intractable, without status epilepticus; K59.00 Constipation, unspecified; Z79.899 Other long term (current) drug therapy; I08.1 Rheumatic disorders of both mitral and tricuspid valves
CPT/HCPCS: 99232-AI; A9575; G0378; J1200; J2920; Q9967

== ENCOUNTER 2022-04-10 15:01 | Emergency (ER) | payer MEDICARE, MEDICAID ==
[~2022-04-10] VITALS: Ht 152.4 cm; Wt 59.1 kg
[~2022-04-10 15:01] MED LIST changes: +APRESOLINE 10MG10 MG PO; +MELATIN 3 MG-11 TAB PO; +PREDNISONE10 MG PO
[2022-04-10 15:03] VITALS: TEMP 98
[2022-04-10] MEDS ORDERED: TYLENOL 500MG500 MG PO (15:36)
[2022-04-10] MEDS ORDERED: DILANTIN 100MG100 MG PO (15:38)
[2022-04-10 15:59] LABS: COLLECTION METHOD CLEAN CATCH
[2022-04-10 16:22] LABS: ALBUMIN 3.6 gm/dL (3.4-4.8); BILIRUBIN,TOTAL 0.2 mg/dL (0.2-1.2); CALCIUM 8.5 mg/dL (8.4-10.2); CREATININE, serum 1.18 mg/dL (0.57-1.11); TOTAL PROTEIN 7.4 gm/dL (6.2-8.1)
[2022-04-10 16:24] LABS: PH 5 (5-8); SQUAMOUS EPITHELIAL 0-2 /hpf (0-10); URINE APPEARANCE Clear (CLEAR/HAZY); URINE BACTERIA Rare /hpf (NONE SEEN); URINE COLOR Yellow (YELLOW); URINE GLUCOSE Negative (NEGATIVE); URINE PROTEIN(semi-quant) Negative (NEGATIVE); URINE RBC 0-2 /hpf (0-2)
[2022-04-10 16:25] LABS: URINE BLOOD Negative (NEGATIVE); URINE KETONE Negative (NEGATIVE); URINE NITRATE Negative (NEGATIVE); URINE UROBILINOGEN Negative (NEGATIVE)
[2022-04-10 16:27] LABS: TROPONIN-I 0.019 ng/mL (0.00-0.033)
[2022-04-10 16:49] LABS: BASO % 0.4 % (0.0-2.0); EOS # 0.1 K/mm3 (0.0-0.7); EOS % 1.3 % (0.0-4.0); GRAN # 2.8 K/mm3 (1.4-6.5); HEMATOCRIT 31.1 % (37.0-47.0); HEMOGLOBIN 10.4 g/dl (12.5-16.0); LYMPH # 1.9 K/mm3 (1.2-3.4); LYMPH % 34.7 % (20.0-51.0); MEAN CELL VOLUME 83 fl (80.0-100.0); MEAN CORPUSCULAR HEMOGLOBIN 28 pg (27-31); MEAN CORPUSCULAR HGB CONC 33 g/dl (33.0-37.0); MEAN PLATELET VOLUME 9.3 fl (7.4-10.4); MONO # 0.7 K/mm3 (0.1-0.6); MONO % 12.4 % (1.7-9.3); PLATELET COUNT 194 K/mm3 (130-400); RED BLOOD COUNT 3.76 M/mm3 (4.10-5.30); REDCELL DISTRIBUTION WIDTH-CV 12.3 % (11.5-14.5)
[2022-04-10 17:00] VITALS: BP 171/81; PULSE 60
== END 2022-04-10 18:08 | disposition home or self-care (01) ==
LOC: COL.ER 15:01
PROVIDERS: Emergency Medicine
DX: D64.9 Anemia, unspecified (principal); R53.81 Other malaise; R77.8 Other specified abnormalities of plasma proteins; Z20.822 Contact with and (suspected) exposure to COVID-19

== ENCOUNTER 2022-10-27 21:53 | Emergency (ER) | payer MEDICARE, MEDICAID ==
[~2022-10-27] VITALS: Ht 165.1 cm; Wt 61.4 kg
[~2022-10-27 21:53] MED LIST changes: +TYLENOL 500MG500 MG PO
[2022-10-27 22:31] LABS: BASO % 0.5 % (0.0-2.0); EOS # 0.1 K/mm3 (0.0-0.7); EOS % 1.2 % (0.0-4.0); GRAN % 52.8 % (42.2-75.2); HEMOGLOBIN 10.2 g/dl (12.5-16.0); LYMPH % 35.2 % (20.0-51.0); MEAN CELL VOLUME 83 fl (80.0-100.0); MEAN CORPUSCULAR HEMOGLOBIN 28 pg (27-31); MEAN CORPUSCULAR HGB CONC 34 g/dl (33.0-37.0); MONO # 0.6 K/mm3 (0.1-0.6); MONO % 10.1 % (1.7-9.3); PLATELET COUNT 211 K/mm3 (130-400); RED BLOOD COUNT 3.68 M/mm3 (4.10-5.30); REDCELL DISTRIBUTION WIDTH-CV 12.5 % (11.5-14.5)
[2022-10-27 22:32] LABS: HEMATOCRIT 30.4 % (37.0-47.0)
[2022-10-27 22:46] LABS: ALBUMIN 3.4 gm/dL (3.4-4.8); BILIRUBIN,TOTAL 0.3 mg/dL (0.2-1.2); CALCIUM 8.8 mg/dL (8.4-10.2); CREATININE, serum 1.62 mg/dL (0.57-1.11); POTASSIUM 3.4 mmol/L (3.5-4.5); TOTAL PROTEIN 6.7 gm/dL (6.2-8.1)
[2022-10-27 23:38] VITALS: BP 115/59; PULSE 69; TEMP 97.2
== END 2022-10-27 23:51 | disposition home or self-care (01) ==
LOC: COL.ER 21:53
PROVIDERS: Personal Emergency Response Attendant
DX: R53.81 Other malaise (principal); N28.9 Disorder of kidney and ureter, unspecified; D64.9 Anemia, unspecified